=== PATIENT | female | born 1975 | race African-American/Black ===

== ENCOUNTER 2017-02-18 11:45 | Inpatient (IN) | payer OTHER ==
[2017-02-18] MEDS ORDERED: BUTORPHANOL TARTRATE 1 MG/ML VIAL IVPB ONE (14:28)
[2017-02-18] MEDS ORDERED: DEXTROSE 5%-LACTATED RINGERS 1,000 ML IV SCH (14:30)
--- NOTE | 2017-02-18 14:44 | HP ---
Past Medical History - Primary Care Physician PCP:: Sigrid Ford - Admission Chief Complaint: 41 yrs (AMA), G10, P3154 , 37 weeks gestation , onset LP since 4.00AM. admited in early labor History of Present Illness: PNC at , 2 [facility] . Wt gain 56 lbs . work up : A pos, Hbsag neg, Rpr nr, Rubella immune, Sickle cell neg , 1 hr Gtt 55, Hiv neg, Gbs neg , Quantifero neg , pap nilm, gc/ct neg AMA , Genetic counselling obtained with M, . MaternaT-21 ne, Afp neg Anatomy sono normal. Last sono on 02/04/17 34.1 wks, , TRICIA 14.7cm, , EFW 5'4"(36 %tile), BPP 8/8 . course uneventful History Source: Patient Limitations to Obtaining History: No Limitations - Past Medical History BILLET CHECKER: No: CVA Cardiovascular: No: HTN, Murmur Pulmonary: No: Asthma, Bronchitis Gastrointestinal: Yes: Constipation, Hemorrhoids Hepatobiliary: No: Hepatitis B Renal/: No: UTI ...: 10 ...Para: 4 ...Term: 3 ...: 1 ...Spon : 2 ...Induced : 3 ...LMP: 05/08/16 ... Weeks Gestation by Dates: 40.6 ...EDC by Dates: 02/12/17 ...EDC by Sono: 03/11/17 (37 weeks ) Additional OB History: G1 07/31/1995 35 weeks 4'2". G2 sp ab 1996 21 weeks still . G3 03/30/1998 40 weeks 7'15". G4 InD AB. G5 01/21/2006 40 weeks 8'0". G6 Ind Ab. G7 12/24/2010 40 Weeks 6'9" H/O PPH , H/o pack cell transfusion x2. G8 Ind Ab. G9 Sp Ab 05/2015 Heme/Onc: Yes: Anemia Infectious Disease: Yes: STD's (h/o trichomoniassi in past). No: AIDS, HIV, Tuberculosis Psych: Yes: Other (none as per patient) Musculoskeletal: Yes: Other (none) Endocrine: No: Diabetes Mellitus, Hypothyroidism - Past Surgical History Past Surgical History: Yes: None Hx Myomectomy: No Hx Transabdominal Cerclage: No - Smoking History Have you smoked in the past 12 months: No - Alcohol/Substance Use History of Substance Use: reports: None Home Medications - Allergies Allergies/Adverse Reactions: Allergies Allergy/AdvReac Type Severity Reaction Status Date / Time Sulfa (Sulfonamide Allergy Severe Difficulty Verified 02/18/17 12:59 Antibiotics) Breathing aspirin Allergy Intermediate Swelling Verified 02/18/17 13:34 Penicillins Allergy Intermediate Swelling Verified 02/18/17 13:34 - Home Medications Home Medications: Ambulatory Orders Vitamins (Sjr) - 1 tab PO DAILY 02/18/17 Physical Exam - Maternity Vital Signs: Vital Signs Temperature 97.5 F L 02/18/17 12:00 Pulse Rate 109 H 02/18/17 12:00 Respiratory Rate 20 02/18/17 12:00 Blood Pressure 108/72 02/18/17 12:00 O2 Sat by Pulse Oximetry (%) Constitutional: Yes: Well Nourished, Mild Distress Eyes: Yes: WNL HENT: Yes: WNL, Normocephalic Neck: Yes: WNL Cardiovascular: Yes: WNL Lungs: Clear to auscultation Breast(s): Yes: WNL - Abdominal Exam/OB Fundal Height: 38 Number of Fetuses: Single Presentation: Vertex (exam at 2.00 pm) Contractions: Yes Regularity: Irregular (5-7-10) Intensity: Mild/Mod Monitor Mode: External Heart Rate (range): 135 Heart Rate Location: [facility] Category: I Accelerations: Uniform Decelerations: None - Vaginal Exam/OB Vaginal Bleediing: Bloody Show Dilatation (cm): 4 Effacement (%): 65 Amniotic Membrane Status: Intact Presentation: Vertex/Position Station: -3 - Physical Exam Musculoskeletal: Yes: WNL Extremities: Yes: WNL. No: Calf Tenderness Edema: LLE: 1+, RLE: 1+ Integumentary: Yes: WNL, Tattoos Deep Tendon Reflex Grade: Normal +2 Psychiatric: Yes: WNL, Alert, Oriented - Labs Lab Results: Laboratory Tests 02/18/17 02/18/17 16:00 16:00 WBC 9.9 Hgb 11.5 Hct 33.8 Plt Count 173 Neutrophils % 70.4 Lymphocytes % 20.3 Sodium 138 Potassium 4.0 Chloride 106 BUN 7 Creatinine 0.6 Random Glucose 107 H Calcium 8.3 L Problem List - Problems (1) AMA (advanced maternal age) multigravida 35+ Code(s): O09.529 - SUPERVISION OF ELDERLY MULTIGRAVIDA, UNSPECIFIED TRIMESTER (2) Grand multipara in labor Code(s): O09.40 - SUPERVISION OF W GRAND MULTIPARITY, UNSP TRIMESTER Qualifiers: Trimester: third trimester Qualified Code(s): O09.43 - Supervision of with grand multiparity, third trimester (3) with 37 weeks completed gestation Code(s): Z3A.37 - 37 WEEKS GESTATION OF (4) Labor established Code(s): ABN5037 - Assessment/Plan 41 yrs( AMA) G10. P3154, 37 weeks , admitted in labor GBS neg Plan vaginal delivery trial pitocin augmentaion prn stadol + phenrgan & or Epidural for labor analgesia
[2017-02-18 14:52] VITALS: BMI 28.3
[2017-02-18] MEDS ORDERED: OXYTOCIN 20 UNITS in 0.9% NS 20 UNIT/1,000 ML INFUS.BAG IV ONE ×2 (15:13→19:21)
[2017-02-18] MEDS ORDERED: OXYTOCIN 15 UNITS/ LR 250 ML 15 UNIT/250 ML INFUS.BAG IVPB SCH (15:15)
[2017-02-18] MEDS ORDERED: OXYTOCIN 15 UNITS/ LR 250 ML 250 ML IVPB SCH (15:30)
[2017-02-18 17:33] LABS: BASO % 0.4 % (0-2.0); HEMATOCRIT 33.8 % (32.4-45.2); HEMOGLOBIN 11.5 GM/dL (10.7-15.3); LYMPH % 20.3 % (8-40); MCH 30.1 pg (25.7-33.7); MCHC 33.9 g/dl (32.0-36.0); MEAN CELL VOLUME 88.6 fl (80-96); MEAN PLT VOLUME 9.9 fl (7.5-11.1); MONO % 7.9 % (3.8-10.2); NEUT % 70.4 % (42.8-82.8); PLATELET COUNT 173 K/MM3 (134-434); RBC 3.82 M/mm3 (3.60-5.2); WHITE BLOOD COUNT 9.9 K/mm3 (4.0-10.0)
[2017-02-18 17:41] LABS: ANION GAP 7 (8-16); BLOOD UREA NITROGEN 7 mg/dL (7-18); CALCIUM 8.3 mg/dL (8.5-10.1); CHLORIDE 106 mmol/L (98-107); CO2 25 mmol/L (21-32); CREATININE 0.6 mg/dL (0.55-1.02); GLUCOSE,RANDOM 107 mg/dL (74-106); SODIUM 138 mmol/L (136-145)
[2017-02-18 18:08] LABS: INR 0.96 (0.82-1.09); PROTHROMBIN TIME (PATIENT) 10.8 SEC (9.98-11.88)
[2017-02-18] MEDS ORDERED: PROMETHAZINE HCL 25 MG/1 ML VIAL ONE (18:33)
[2017-02-18] MEDS ORDERED: BUTORPHANOL TARTRATE 1 MG/ML VIAL ONE ×2 (18:33)
--- NOTE | 2017-02-18 18:35 | PN ---
Progress Note, Labor Vaginal Exam #1 Labor Exam Date: 02/18/17 Labor Exam Time: 18:30 Heart Rate (range): 140 Dilatation: 5 Effacement (%): 70 Amniotic Membrane Status: Ruptured (AROM clear moderate amount) Presentation: Vertex/Position Station: -2 Remarks: fhr cat-1 uc q 3-6 min pt requests for pain meds rx iv stadol2 mg + phenrgan 25 mg stat Selected Entries 02/18/17 18:00 Temperature 98.0 F Pulse Rate 78 Blood Pressure 110/66 Vaginal Exam #2 Labor Exam Date: 02/18/17 Labor Exam Time: 19:20 Heart Rate (range): 110-120 Dilatation: 10 Effacement (%): 100 Amniotic Membrane Status: Ruptured Presentation: Vertex/Position Station: +2 Remarks: fhr cat-2 uc 2-3 min pt pushing Selected Entries 02/18/17 02/18/17 18:00 19:00 Temperature 98.0 F Pulse Rate 78 82 Blood Pressure 110/66 116/69
[2017-02-18] MEDS ORDERED: PROMETHAZINE HCL 25 MG/1 ML VIAL IVPB ONE (18:39)
[2017-02-18] MEDS ORDERED: LIDOCAINE HCL 1% PRESERVATIVE FREE - 30ML VIAL ONE (19:21)
[2017-02-18] MEDS: OXYTOCIN 20 UNITS in 0.9% NS 20 UNIT/1,000 ML INFUS.BAG IV SCH ×2 (19:30→20:30)
[2017-02-18] MEDS ORDERED: WITCH HAZEL 50% (TUCKS) 40 PAD/JAR PAD TP PRN (19:35)
--- NOTE | 2017-02-18 19:56 | PN ---
Delivery - Delivery Vaginal Delivery: No Problems, Spontaneous (cord around neck x1 loop loose , unwinded , before delivery of shoulder. prophylactically iv Pitocin 20 IU put in 1000 ml n saline started immdiately after delivery of the baby,. Im Methergine 0.2 mg im was given after delivery of placenta. trickling of blood was noted . MEU done . Bladder catheterized & emptied 500 ml griffin color urine. Perineum & v agina & cervix intact .) Episiotomy/Laceration: None EBL (cc): 500 Delivery, Single - Stages of Labor Date 1st Stage Initiatied: 02/18/17 Time 1st Stage Initiated: 04:00 Date 2nd Stage Initiated: 02/18/17 Time 2nd Stage Initiated: 19:20 Date of Delivery: 02/18/17 Time of Delivery: 19:28 Date Placenta Delivered: 02/18/17 Time Placenta Delivered: 19:33 Placenta: Yes: Spontaneous, Uterine Exploration - Condition of Infant Academic Tutor/Three Dimensional Art Instructor Present: No Infant Gender: Female Weight: 5 lb 14 oz Position: Left, OA - 1 Minute Total Score: 9 5 Minutes Total Score: 9 - [place] Feeding Plan Initial Plan: Elected not to breastfeed exclusively throughout hospitalization Remarks - Remarks Remarks: 41 Yrs (AMA), , 37 weeks admitted in labor . gbs neg . pnc at [address] [place] [address] Iv pitocin augmentation was given Iv stadol + phenrgan for labor analgesia was given Atonic PPH is noted 20.05 hr re exam .: blood trickling from vagina MEU done again 100 ml blood cllots removed, ut is not firm.consistently Rx IM Hemabate 250 mcg stat v/s BP 93/56 , Pulse 66/min
[2017-02-18] MEDS ORDERED: METHYLERGONOVINE MALEATE 0.2 MG/1 ML AMP IM PRN (19:59)
[2017-02-18] MEDS ORDERED: BENZOCAINE 28 GM HEMORRHOIDAL OINTMENT TP PRN (19:59)
[2017-02-18] MEDS ORDERED: BISACODYL 10 MG SUPP.RECT RC PRN (19:59)
[2017-02-18] MEDS ORDERED: BENZOCAINE 20% 57 GM BOTTLE TP PRN (19:59)
[2017-02-18] MEDS ORDERED: CARBOPROST TROMETHAMINE 250 MCG/ML AMPUL IM ONE (20:15)
[2017-02-18 20:44] LABS: ARTERIAL BLD GAS O2 SATURATION 88.6 % (90-98.9); ARTERIAL BLOOD GAS BASE EXCESS -1.7 meq/l (-2-2); ARTERIAL BLOOD GAS pH 7.38 (7.35-7.45)
[2017-02-18 20:55] LABS: VENOUS PC02 45.5 mmHg (38-52); VENOUS PH 7.34 (7.32-7.42); VENOUS PO2 34.4 mmHg (28-48)
[2017-02-18 20:57] LABS: ARTERIAL BLOOD GAS PO2 44.8 mmHg (80-100)
[2017-02-19] MEDS: ACETAMINOPHEN 325 MG TABLET (FP) PO PRN ×3 (00:12→22:13)
[2017-02-19 07:22] LABS: BASO % 0.4 % (0-2.0); EOS % 1.1 % (0-4.5); HEMATOCRIT 27.9 % (32.4-45.2); HEMOGLOBIN 9.4 GM/dL (10.7-15.3); LYMPH % 24.7 % (8-40); MCH 29.6 pg (25.7-33.7); MCHC 33.7 g/dl (32.0-36.0); MEAN PLT VOLUME 9.8 fl (7.5-11.1); MONO % 6.2 % (3.8-10.2); NEUT % 67.6 % (42.8-82.8); PLATELET COUNT 159 K/MM3 (134-434); RBC 3.17 M/mm3 (3.60-5.2); RDW 12.8 % (11.6-15.6)
--- NOTE | 2017-02-19 07:57 | PN ---
Progress Note (short form) - Note Progress Note: ppd 1 doing well, no c/o ,no excess vaginal bleeding CBC, BMP 02/19/17 06:45 02/18/17 16:00 Last Vital Signs Temp Pulse Resp BP Pulse Ox 98.0 F 93 H 18 107/63 100 02/19/17 06:00 02/19/17 06:00 02/19/17 06:00 02/19/17 06:00 02/18/17 21:00 abdomen soft, non tender, uterus firm, non tender lochia mild no calf tenderness impression ppd 1 doing well, mild anemia , advised iron , vit
[2017-02-19] MEDS: FERROUS SO4 325 MG TABLET (FP) PO SCH ×2 (09:57→17:05)
[2017-02-19] MEDS: IBUPROFEN 600 MG TABLET (FP) PO PRN ×2 (09:58→22:14)
[2017-02-19] MEDS: PRENATAL VITAMINS W/ FOLIC ACID TABLET (FP) PO SCH (09:59)
[2017-02-19] MEDS ORDERED: SENNOSIDES/DOCUSATE COMBO (SENNA PLUS) TABLET (UD) PO PRN (22:00)
[2017-02-20] MEDS: FERROUS SO4 325 MG TABLET (FP) PO SCH (08:11)
[2017-02-20 08:32] VITALS: BP 96/60; PULSE 86; TEMP 97.2
--- NOTE | 2017-02-20 08:44 | PN ---
Progress Note (short form) - Note Progress Note: ppd 2 doing well, no c/o abdomen soft, no distension, uterus firm lochia mild no calf tenderness CBC, BMP 02/19/17 06:45 02/18/17 16:00 Last Vital Signs Temp Pulse Resp BP Pulse Ox 97.2 F L 86 20 96/60 100 02/20/17 08:30 02/20/17 08:30 02/20/17 08:30 02/20/17 08:30 02/18/17 21:00 plan d/c home, rtc 4 weeks
[2017-02-20] MEDS: PRENATAL VITAMINS W/ FOLIC ACID TABLET (FP) PO SCH (09:33)
--- NOTE | 2017-02-23 18:37 | DS ---
Physical Exam-GARAGE DOOR HANGER Vital Signs: Vital Signs Temperature 97.2 F L 02/20/17 08:30 Pulse Rate 86 02/20/17 08:30 Respiratory Rate 20 02/20/17 08:30 Blood Pressure 96/60 02/20/17 08:30 O2 Sat by Pulse Oximetry (%) 100 02/18/17 21:00 Constitutional: Yes: Well Nourished, Pallor Eyes: Yes: WNL HENT: Yes: WNL, Normocephalic Neck: Yes: WNL Cardiovascular: Yes: WNL Respiratory: Yes: WNL Gastrointestinal: Yes: WNL ...Rectal Exam: Yes: WNL Renal/: Yes: WNL ....Post : Yes: Uterus firm, Uterus non-tender, Moderate lochia rubra ( perineum intact) Breast(s): Yes: WNL Musculoskeletal: Yes: WNL Extremities: Yes: WNL. No: Calf Tenderness Edema: Yes Edema: LLE: 1+, RLE: 1+ Integumentary: Yes: WNL, Tattoos Neurological: Yes: WNL ...Motor Strength: WNL Psychiatric: Yes: WNL Labs: CBC, BMP 02/19/17 06:45 02/18/17 16:00 Delivery - Delivery Vaginal Delivery: No Problems, Spontaneous (cord around neck x1 loop loose , unwinded , before delivery of shoulder. prophylactically iv Pitocin 20 IU put in 1000 ml n saline started immdiately after delivery of the baby,. Im Methergine 0.2 mg im was given after delivery of placenta. trickling of blood was noted . MEU done . Bladder catheterized & emptied 500 ml griffin color urine. Perineum & v agina & cervix intact .) Type of Anesthesia: None Episiotomy/Laceration: None EBL (cc): 500 Delivery, Single - Stages of Labor Date 1st Stage Initiatied: 02/18/17 Time 1st Stage Initiated: 04:00 Date 2nd Stage Initiated: 02/18/17 Time 2nd Stage Initiated: 19:20 Date of Delivery: 02/18/17 Time of Delivery: 19:28 Time Placenta Delivered: 19:33 Placenta: Yes: Spontaneous, Uterine Exploration - Condition of Infant Field Representatives Director/Pipe Organ Tuner And Repairer Present: No Infant Gender: Female Weight: 5 lb 14 oz Position: Left, OA Total Hours ROM (Hrs/Mins): 1 hour 3 minutes - 1 Minute Total Score: 9 5 Minutes Total Score: 9 - Feeding Plan Initial Plan: Elected not to breastfeed exclusively throughout hospitalization Remarks - Remarks Remarks: 41 Yrs (AMA), , 37 weeks admitted in labor . gbs neg . pnc at [address] [place] [address] Iv pitocin augmentation was given Iv stadol + phenrgan for labor analgesia was given Atonic PPH is noted 20.05 hr re exam .: blood trickling from vagina MEU done again 100 ml blood cllots removed, ut is not firm.consistently Rx IM Hemabate 250 mcg stat v/s BP 93/56 , Pulse 66/min . pp course uneventful pt hemodynamically stable anemia counselled discharge 02/20/17 Discharge Summary Reason For Visit: LABOR ADMISSION - Instructions Diet, Activity, Other Instructions: Return to [address] [place] [address] in 6weeks for check up, call clinic for an appointment. Referrals: Sigrid Ford MD [Staff Physician] - Disposition: HOME - Home Medications Comprehensive Discharge Medication List: Ambulatory Orders Vitamins (Sjr) - 1 tab PO DAILY 02/18/17
== END 2017-02-20 14:00 | disposition home or self-care (01) | DRG 560 ==
LOC: JDEL 11:45 → JLDR 14:20 → J3W 22:30
PROVIDERS: ADMIT Obstetrics & Gynecology; ATTEND Obstetrics & Gynecology
PROC: 10E0XZZ Delivery of Products of Conception, External Approach (ICD-10-PCS; principal; 2017-02-18)
DX: O69.81X0 Labor and delivery complicated by cord around neck, without compression, not applicable or unspecified (principal); Z3A.37 37 weeks gestation of pregnancy; Z37.0 Single live birth
CPT/HCPCS: 36415; 36600; 59025; 59409; 80048; 82803; 85025; 85610; 85730; 86593; 86850; 86900; 86901